=== PATIENT | male | born 1990 | race Caucasian/White ===

== ENCOUNTER 2018-03-06 18:13 | Emergency (ER) | payer OTHER ==
[~2018-03-06] VITALS: Ht 172.7 cm; Wt 110.0 kg
[2018-03-06 18:25] VITALS: TEMP 37.2; Ht 172.7 cm; Wt 110.0 kg
[2018-03-06] MEDS ORDERED: CIPROFLOXACIN 500 MG TAB PO STA (18:41)
[2018-03-06] MEDS ORDERED: HYDR-5688 PO (18:53)
[2018-03-06] MEDS ORDERED: CIPROFLOXACIN 250 MG TAB ONE (18:53)
[2018-03-06] MEDS ORDERED: CPR750 PO (18:53)
--- NOTE | 2018-03-06 18:55 | EMERGENCY ROOM VISIT NOTE ---
ED Visit Note First contact with patient: 18:31 CHIEF COMPLAINT: Infection of the left foot HISTORY OF PRESENT ILLNESS: This 28-year-old male patient presents to the emergency department, ambulatory but with crutches, complaining of worsening left foot pain and swelling with mild redness. The patient states on Monday afternoon, he stopped a jody nail which punctured through his shoe and the bottom part of his foot. He states he went to urgent care yesterday and was started on antibiotics (Keflex), but was not given pain medication. He called today and was advised to go to the emergency department if he required pain medication. Today, the patient reports increased pain, swelling, and redness on the top of his foot. The patient denies fever, chills, nausea, or loss of appetite. Movement of the left foot is mildly decreased because of the pain. The patient's tetanus shot is up to date, as he was given one by urgent care yesterday. REVIEW OF SYSTEMS: A 10 system review of systems was performed with positives and pertinent negatives listed in the history of present illness. All other systems were reviewed and are negative. ALLERGIES: None MEDICATIONS: Keflex PMH: None SOCIAL HISTORY: The patient lives locally with family. He denies drug, alcohol use. He admits to smoking one half pack of cigarettes per day. PHYSICAL EXAM: Vital Signs: Reviewed Nurse's notes, Temperature 37.2C, vital signs stable. GENERAL: This is a 28-year-old white male, in no acute distress, is non toxic in appearance, well-developed, well-nourished. SKIN: The left foot is red, warm, very tender, and swollen. There is no lymphangitic streaking. There is no discharge. There is no fluctuance. There is no induration. The swelling, erythema, and tenderness is located on the dorsal aspect of the foot, however the puncture wound is on the plantar aspect. HEART: Regular rate and rhythm without murmur, gallop, or rub. LUNGS: Clear to auscultation bilaterally without wheezes, rales, or rhonchi. NEURO: Alert and oriented to person, place, and time. Normal sensation to light and sharp touch. Capillary reflex less than 2 seconds. Peripheral pulses 2 + bilaterally. EMERGENCY DEPARTMENT COURSE: I examined the patient. His symptoms are consistent with a cellulitis. Based on the mechanism of injury, I suspect Pseudomonas is the cause, as the nail did puncture through his shoe. The patient did have x-rays performed yesterday which verified no foreign body. There is no signs of abscess on examination. Because he is already been on 2 days worth of Keflex, he was advised to continue taking this medication. He will be started on Cipro to cover for Pseudomonas. The patient will be given a short course of narcotic pain medication for his symptoms. PDMP was checked and no suspicious findings noted. The patient was given his first dose of Cipro while here in the emergency department. He was given paper prescriptions for the antibiotics and narcotics to have filled at his pharmacy. Discharge instructions reviewed, the patient was discharged home in good condition. I attest that I have personally reviewed the patient's current medication list. Blood Pressure Screening: Patient was found to have a slightly elevated blood pressure due to circumstances. I do not believe that the patient requires hypertension monitoring. Differential diagnosis includes cellulitis, abscess, DVT, superficial thrombus, septic joint, necrotizing fasciitis, burn, dermatitis, impetigo, erythema multiforme, bite, osteomyelitis, Moon-Maxwell Syndrome, gangrene, malignancy , and others DIAGNOSIS: Cellulitis of the left foot The chart was completed utilizing [employer] Speech voice recognition software. Grammatical errors, random word insertions, pronoun errors, and incomplete sentences are an occasional consequence of this system due to software limitations, ambient noise, and hardware issues. Any formal questions or concerns about the content, text, or information contained within the body of this dictation should be directly addressed to the provider for clarification. Current/Historical Medications Scheduled Ciprofloxacin (Ciprofloxacin HCl), 1 TAB PO BID Scheduled PRN Hydrocodone/Acetaminophen 5MG/325MG ([place] 5MG/325MG), 1 TABLET PO Q4H PRN for Pain Miscellaneous Medications None (Patient States No Home Meds) None (Patient States No Home Meds) Allergies Coded Allergies: No Known Allergies (Verified , 04/15/10) Vital Signs Date Time Temp Pulse Resp B/P (MAP) Pulse Ox O2 Delivery O2 Flow Rate FiO2 03/06/18 19:09 109 18 146/104 95 03/06/18 18:25 37.2 118 20 164/98 96 Room Air Medications Administered Medications (Trade) Dose Ordered Sig/Sergio Route Start Time Stop Time Status Last Admin Dose Admin Ciprofloxacin (Cipro Tab) 750 mg NOW STAT PO 03/06/18 18:41 03/06/18 18:46 DC 03/06/18 18:57 500 MG Ciprofloxacin (Ciprofloxacin Tab) 250 mg STK-MED ONCE .ROUTE 03/06/18 18:53 03/06/18 18:54 DC 03/06/18 18:58 250 MG Departure Information Impression Primary Impression: Cellulitis Additional Impression: Puncture wound of foot, left Dispostion Home / Self-Care Condition GOOD Prescriptions Hydrocodone/Acetaminophen 5MG/325MG ([place] 5MG/325MG) Tab 1 TABLET PO Q4H Y for Pain, #15 TAB For Initial Treatment Prov: Chelsey Davis PA-C 03/06/18 Ciprofloxacin (Ciprofloxacin HCl) 750 Mg Tab 1 TAB PO BID for 10 Days, #20 TABS Prov: Chelsey Davis PA-C 03/06/18 Referrals No Doctor, Assigned (PCP) Patient Instructions ED Infec Skin Cellulitis, [facility] Additional Instructions You were seen in the emergency department today for a skin infection. As discussed, I suspect you were on the wrong antibiotic based on the type of bacteria which is likely causing her infection due to the injury. You were prescribed Cipro to be taken twice daily. This is an antibiotic. All antibiotics have the potential to cause diarrhea. Stop this medication and contact a medical provider if you were to develop any significant adverse side effects including: wheezing, shortness of breath, passing out, vomiting, or a diffuse rash. Always take antibiotics as directed and COMPLETE the ENTIRE course regardless of the improvement of your symptoms. Continue taking Keflex as prescribed. You have been prescribed [place] to be used for pain control. Take 1 tablets every 4-6 hours as needed for pain. This is a narcotic medication. You cannot drive or consume alcohol while on this medicine. This medicine should only be used for pain that cannot be controlled with [id number] pain medicines. Ibuprofen(Motrin, Advil) may be used for fever or pain. Use 600mg every six hours as needed. Take with food. Avoid using more than 2400mg in a 24 hour period. Do not use 2400mg per day for more than three consecutive days without physician direction. Prolonged inappropriate use can lead to stomach upset or ulcers. (AND/OR) Acetaminophen(Tylenol) may be used for fever or pain. Use 1000mg every six hours as needed. Avoid using more than 3000mg in a 24 hour period. Follow-up with your primary care provider within 1 week for reevaluation of the wound. Return to the emergency department for any significantly worsening redness, swelling, pain, purulent drainage, fevers, chills, nausea, vomiting, or other concerning symptoms. Problem Qualifiers Primary Impression: Cellulitis Site of cellulitis: extremity Site of cellulitis of extremity: lower extremity Laterality: left Qualified Codes: L03.116 - Cellulitis of left lower limb Additional Impression: Puncture wound of foot, left Encounter type: initial encounter Qualified Codes: S91.332A - Puncture wound without foreign body, left foot, initial encounter
[2018-03-06 19:09] VITALS: BP 146/104; PULSE 109; O2SAT 95
== END 2018-03-06 19:08 | disposition home or self-care (01) ==
LOC: C.EDB 18:14 → C.EDD 19:08
DX: L03.116 Cellulitis of left lower limb (principal); S91.342D Puncture wound with foreign body, left foot, subsequent encounter; W45.0XXD Nail entering through skin, subsequent encounter; F17.210 Nicotine dependence, cigarettes, uncomplicated